=== PATIENT | female | born 1965 | race Caucasian/White ===

== ENCOUNTER 2022-02-01 10:51 | Day surgery (SDC) | payer MEDICARE, OTHER ==
[2022-01-31 08:56] LABS: COVID AG,FIA SOURCE NASAL SWAB
[~2022-02-01] VITALS: Ht 157.5 cm; Wt 103.6 kg
[~2022-02-01 10:51] MED LIST: ATOR20TA86 PO; GABA-1181 PO; HYDR25TA2 PO; LEVO25TA9 PO; LOSA-382 PO; NAPR-1025 PO; SODIUM CHLORIDE 0.9% 1,000 ML ONE
[2022-02-01] MEDS ORDERED: SODIUM CHLORIDE 0.9% 1,000 ML IV ONE (11:00)
[2022-02-01] MEDS ORDERED: PROPOFOL 1% 20 ML VIAL IVP ONE (12:00)
== END 2022-02-01 16:09 | disposition home or self-care (01) ==
LOC: SURGERY 10:51
PROVIDERS: ATTEND Internal Medicine Gastroenterology
DX: Z12.11 Encounter for screening for malignant neoplasm of colon (principal); K63.5 Polyp of colon; K64.0 First degree hemorrhoids; E78.5 Hyperlipidemia, unspecified; I10 Essential (primary) hypertension; E66.01 Morbid (severe) obesity due to excess calories; M19.90 Unspecified osteoarthritis, unspecified site; Z79.899 Other long term (current) drug therapy; Z98.890 Other specified postprocedural states; Z20.822 Contact with and (suspected) exposure to COVID-19
CPT/HCPCS: 87426; 45380; C9803; C1769; J2704; J7030

== ENCOUNTER 2022-02-08 10:10 | Day surgery (SDC) | payer MEDICARE, OTHER ==
[2022-02-07 08:55] LABS: COVID AG,FIA SOURCE NASAL SWAB
[~2022-02-08] VITALS: Ht 157.5 cm; Wt 103.5 kg
[~2022-02-08 10:10] MED LIST changes: +SODIUM CHLORIDE 0.9% 1,000 ML IV ONE
[2022-02-08] MEDS ORDERED: PROPOFOL 1% 20 ML VIAL IVP ONE (10:11)
[2022-02-08] MEDS ORDERED: LIDOCAINE/PF 2% 5 ML SYRINGE IVP ONE (10:11)
== END 2022-02-08 14:15 | disposition home or self-care (01) ==
LOC: SURGERY 10:10 → EDUNIT# 12:00 → SURGERY 14:15
PROVIDERS: ATTEND Internal Medicine Gastroenterology
DX: K29.50 Unspecified chronic gastritis without bleeding (principal); B96.81 Helicobacter pylori [H. pylori] as the cause of diseases classified elsewhere; Z20.822 Contact with and (suspected) exposure to COVID-19; Z79.899 Other long term (current) drug therapy; Z98.890 Other specified postprocedural states; E78.00 Pure hypercholesterolemia, unspecified; I10 Essential (primary) hypertension; E66.01 Morbid (severe) obesity due to excess calories; M19.90 Unspecified osteoarthritis, unspecified site
CPT/HCPCS: 87426; 43239; 88305; 88312; 88313; C9803; C1769; J2704; J3490; J7030